=== PATIENT | male | born 1975 ===

== ENCOUNTER 2017-01-18 13:41 | Inpatient (IN) | payer MEDICAID, OTHER ==
[2017-01-18] MEDS ORDERED: Aluminum Hydroxide/Magnesium Hydroxide Susp (30 mL) PO STA (14:49)
[2017-01-18] MEDS ORDERED: Lidocaine 2% Viscous 100 ml PO STA (14:49)
[2017-01-18] MEDS ORDERED: Sodium Chloride 0.9% 1,000 ML IV ONE (14:49)
--- NOTE | 2017-01-18 14:54 | C.PDOC ---
History Of Present Illness 41 y/o male no pmhx presents to the ED with complains of abdominal pain, requesting alcohol detox. Pt states he was sober for 10 years but has been a binge the last 8 days. Pt now has epigastric pain, bloating and nausea. Pt was treated at [place], with labs performed, prescribed pain medication; referred pt to [facility] for detox services. Pt denies headache, vomiting, chest pain or any other complaints. Time Seen by Provider: 01/18/17 14:25 Chief Complaint (Nursing): Substance Abuse History Per: Patient History/Exam Limitations: no limitations Onset/Duration Of Symptoms: Days Current Symptoms Are (Timing): Still Present Modifying Factor(s): Alcohol Severity: Mild Involuntary Hold By: None Recent travel outside of the [place]: No Past Medical History Reviewed: Historical Data, Nursing Documentation, Vital Signs Vital Signs: Last Vital Signs Temp 98 F 01/18/17 13:52 Pulse 66 01/18/17 13:52 Resp 20 01/18/17 13:52 BP 94/61 L 01/18/17 13:52 Pulse Ox 100 01/18/17 15:27 Surgical History: Appendectomy Family History: States: Unknown Family Hx - Social History Hx Alcohol Use: Yes (chronic at times.) Hx Substance Use: No - Immunization History Hx Tetanus Toxoid Vaccination: No Hx Influenza Vaccination: No Hx Pneumococcal Vaccination: No Review Of Systems Except As Marked, All Systems Reviewed And Found Negative. Constitutional: Negative for: Fever Cardiovascular: Negative for: Chest Pain Gastrointestinal: Positive for: Nausea, Abdominal Pain. Negative for: Vomiting , Diarrhea Neurological: Negative for: Headache Physical Exam - Physical Exam Appears: Non-toxic, No Acute Distress, Other (frail, thin) Skin: Warm, Dry Head: Atraumatic, Normacephalic Neck: Normal ROM, Supple Chest: Symmetrical Cardiovascular: Rhythm Regular, No Murmur Respiratory: Normal Breath Sounds, No Rales, No Rhonchi, No Wheezing Gastrointestinal/Abdominal: Soft, Tenderness (diffuse), No Guarding, No Rebound Extremity: Normal ROM Extremity: Bilateral: Atraumatic Neurological/Psych: Oriented x3, Other (tremulous) ED Course And Treatment - Laboratory Results Result Diagrams: 01/18/17 17:13 01/18/17 17:06 O2 Sat by Pulse Oximetry: 100 (on room air) Pulse Ox Interpretation: Normal Progress Note: Plan: labs, maalox, pepcid, UA, IV fluids Disposition Discussed With Dr.: Buzz Lane Doctor Will See Patient In The: Hospital Counseled Patient/Family Regarding: Studies Performed - Disposition Disposition: HOME/ ROUTINE Disposition Time: 18:20 Condition: GUARDED - Clinical Impression Clinical Impression: Alcohol withdrawal, Wasting syndrome - Scribe Statement The provider has reviewed the documentation as recorded by the Sparkle Aguiar Provider Attestation: All medical record entries made by the Sparkle were at my direction and personally dictated by me. I have reviewed the chart and agree that the record accurately reflects my personal performance of the history, physical exam, medical decision making, and the department course for this patient. I have also personally directed, reviewed, and agree with the discharge instructions and disposition. Decision To Admit - Pt Status Changed To: Hospital Disposition Of: Inpatient - Admit Certification Admit to Inpatient:: After my assessment, the patient will require hospitalization for at least two midnights. This is because of the severity of symptoms shown, intensity of services needed, and/or the medical risk in this patient being treated as an outpatient. - InPatient: Physician Admission Certification: I certify that this patient requires 2 or more midnights of care for the following reason:: wasting syndrom, weight loss, withdrawl - . Bed Request Type: Regular Patient Diagnosis: Alcohol withdrawal, Wasting syndrome
[2017-01-18] MEDS ORDERED: Sodium Chloride 0.9% 1,000 ML ONE (15:09)
[2017-01-18] MEDS ORDERED: Aluminum Hydroxide/Magnesium Hydroxide Susp (30 mL) ONE (15:27)
[2017-01-18 15:31] LABS: RBC URINE < 1 /hpf (0-3); URINE BILIRUBIN NEGATIVE (NEGATIVE); URINE BLOOD NEGATIVE (NEGATIVE); URINE COLOR Yellow (YELLOW); URINE GLUCOSE (UA) NORMAL (Normal); URINE KETONE TRACE mg/dL (NEGATIVE); URINE LEUKOCYTE ESTERASE NEG Leu/uL (Negative); URINE PROTEIN NEGATIVE (NEGATIVE); URINE UROBILINOGEN NORMAL mg/dL (0.2-1.0); WBC URINE < 1 /hpf (0-5)
[2017-01-18 17:19] LABS: CHLORIDE 96 mmol/L (98-107); POTASSIUM 5.7 mmol/L (3.6-5.2); SODIUM 132 mmol/L (132-148)
[2017-01-18 17:21] LABS: BILIRUBIN,TOTAL 2.6 mg/dL (0.2-1.3); CARBON DIOXIDE 22 mmol/L (22-30); GFR AFRICAN-AMERICAN > 60
[2017-01-18 17:21] LABS: BASO % 0.8 % (0.0-2.0); EOS % 0.8 % (0.0-4.0); HEMATOCRIT 41.1 % (35.0-51.0); LYMPH # 1.7 K/uL (1.0-4.3); LYMPH % 33.5 % (20.0-40.0); MEAN CELL VOLUME 93.2 fL (80.0-94.0); MEAN CORPUSCULAR HEMOGLOBIN 31.8 pg (27.0-31.0); MEAN CORPUSCULAR HGB CONC 34.1 g/dL (33.0-37.0); MEAN PLATELET VOLUME 9.5 fL (7.2-11.7); MONO # 0.5 K/uL (0.0-0.8); MONO % 10.6 % (0.0-10.0); NRBC % 0.1 % (0.0-2.0); RED CELL DISTRIBUTION WIDTH 13.7 % (11.5-14.5); WHITE BLOOD COUNT 4.9 K/uL (4.8-10.8)
[2017-01-18 17:22] LABS: ALB/GLOB RATIO 1.5 (1.0-2.1); ALKALINE PHOSPHATASE 58 U/L (38-126); ALT/SGPT 16 U/L (21-72); AST/SGOT 70 U/L (17-59); BLOOD UREA NITROGEN 5 mg/dL (9-20); CALCIUM 8.4 mg/dl (8.6-10.4); GLUCOSE,RANDOM 90 mg/dL (75-110); TOTAL PROTEIN 7.3 g/dL (6.3-8.3)
[2017-01-18 17:23] LABS: ALCOHOL SERUM < 10 mg/dl (0-10)
[2017-01-18] MEDS ORDERED: Folic Acid 1 MG, Thiamine 100 MG, Multivitamin (MVI) 10 ML in Dextrose 5% In Water 1,00... IV SCH (18:30)
--- NOTE | 2017-01-18 19:06 | CP.PCM.HP ---
<Rogelio Thomas - Last Filed: 01/18/17 19:09> History of Present Illness - History of Present Illness History of Present Illness: This is a 41 yo with PMH significant for Etoh abuse presented to the ED with chief complaint of abdominal pain and desire for detox from Etoh. Pt states that he used to abuse Etoh but stopped around 10 years ago. However, he states that starting about 1 month ago, he began to drink again. He says that he was drinking around 10 large beers per day. He states that this went on for at least 2 weeks at which time he was not consuming food as well. He reports significant weight loss, around 20-30 pounds. According to the pt, he stopped drinking agin about 1 week ago and that is when he started having abdominal pain. The pain is worse with eating and he feels like he is bloated and there is burning as well. He has not been vomiting and denies any diarrhea as well. Denies fevers, chills, chest pain, sob or nausea. He admits to shaking, and diaphoresis. He states that he will soke his sheets at night. PMD: none PMH: Etoh abuse PSH: denies Home medications: none Allergies: NKA FH: denies SH: as above Present on Admission - Present on Admission Any Indicators Present on Admission: No Review of Systems - Constitutional Constitutional: absent: Chills, Fever - EENT Eyes: absent: Blurred Vision, Pain - Cardiovascular Cardiovascular: absent: Chest Pain, Palpitations - Respiratory Respiratory: absent: Cough, Dyspnea - Gastrointestinal Gastrointestinal: Abdominal Pain, Bloating. absent: Diarrhea, Nausea, Vomiting - Musculoskeletal Musculoskeletal: absent: Muscle Weakness, Stiffness - Integumentary Integumentary: absent: Rash, Skin Pain - Neurological Neurological: absent: Numbness, Tingling Past Patient History - Infectious Disease Hx of Infectious Diseases: None - Past Social History Smoking Status: Never Smoked - PSYCHIATRIC Hx Substance Use: No - SURGICAL HISTORY Hx Appendectomy: Yes - ANESTHESIA Hx Anesthesia: Yes Hx Anesthesia Reactions: No Hx Malignant Hyperthermia: No Meds Allergies/Adverse Reactions: Allergies Allergy/AdvReac Type Severity Reaction Status Date / Time No Known Allergies Allergy Verified 01/18/17 14:30 Physical Exam - Constitutional Appears: Well, Non-toxic, No Acute Distress, Cachectic (mild) - Head Exam Head Exam: ATRAUMATIC, NORMOCEPHALIC - Eye Exam Eye Exam: Normal appearance. absent: Scleral icterus Pupil Exam: absent: PERRL - ENT Exam ENT Exam: Mucous Membranes Moist - Respiratory Exam Respiratory Exam: Clear to Auscultation Bilateral, NORMAL BREATHING PATTERN - Cardiovascular Exam Cardiovascular Exam: +S1, +S2 - GI/Abdominal Exam GI & Abdominal Exam: Normal Bowel Sounds, Soft, Tenderness (epigastric) - Extremities Exam Extremities exam: Positive for: normal capillary refill, normal inspection - Back Exam Back exam: NORMAL INSPECTION - Neurological Exam Neurological exam: Alert, Oriented x3 Additional comments: Mild tremors - Skin Skin Exam: Dry, Warm Results - Vital Signs Recent Vital Signs: Last Vital Signs Temp 98 F 01/18/17 13:52 Pulse 66 01/18/17 13:52 Resp 20 01/18/17 13:52 BP 94/61 L 01/18/17 13:52 Pulse Ox 100 01/18/17 18:21 - Labs Result Diagrams: 01/18/17 17:13 01/18/17 17:06 Labs: Laboratory Results - last 24 hr 01/18/17 01/18/17 01/18/17 15:26 17:06 17:13 WBC 4.9 RBC 4.41 Hgb 14.0 Hct 41.1 MCV 93.2 MCH 31.8 H MCHC 34.1 RDW 13.7 Plt Count 205 MPV 9.5 Neut % (Auto) 54.3 Lymph % (Auto) 33.5 Gar[place] % (Auto) 10.6 H Eos % (Auto) 0.8 Baso % (Auto) 0.8 Neut # 2.7 Lymph # 1.7 Garza # 0.5 Eos # 0.0 Baso # 0.0 Sodium 132 Potassium 5.7 H Chloride 96 L Carbon Dioxide 22 Anion Gap 20 BUN 5 L Creatinine 0.6 L Est GFR ( Amer) > 60 Est GFR (Non-Af Amer) > 60 Random Glucose 90 Calcium 8.4 L Total Bilirubin 2.6 H AST 70 H ALT 16 L Alkaline Phosphatase 58 Ammonia < 9 L Total Protein 7.3 Albumin 4.4 Globulin 2.9 Albumin/Globulin Ratio 1.5 Lipase 97 Urine Color Yellow Urine Clarity Clear Urine pH 6.0 Ur Specific [place] 1.011 Urine Protein Negative Urine Glucose (UA) Normal Urine Ketones Trace Urine Blood Negative Urine Nitrate Negative Urine Bilirubin Negative Urine Urobilinogen Normal Ur Leukocyte Esterase Neg Urine WBC (Auto) < 1 Urine RBC (Auto) < 1 Urine Opiates Screen Urine Methadone Screen Ur Barbiturates Screen Ur Phencyclidine Scrn Ur Amphetamines Screen U Benzodiazepines Scrn U Oth Cocaine Metabols U Cannabinoids Screen Alcohol, Quantitative < 10 01/18/17 17:27 WBC RBC Hgb Hct MCV MCH MCHC RDW Plt Count MPV Neut % (Auto) Lymph % (Auto) Garza % (Auto) Eos % (Auto) Baso % (Auto) Neut # Lymph # Garza # Eos # Baso # Sodium Potassium Chloride Carbon Dioxide Anion Gap BUN Creatinine Est GFR ( Amer) Est GFR (Non-Af Amer) Random Glucose Calcium Total Bilirubin AST ALT Alkaline Phosphatase Ammonia Total Protein Albumin Globulin Albumin/Globulin Ratio Lipase Urine Color Urine Clarity Urine pH Ur Specific [place] Urine Protein Urine Glucose (UA) Urine Ketones Urine Blood Urine Nitrate Urine Bilirubin Urine Urobilinogen Ur Leukocyte Esterase Urine WBC (Auto) Urine RBC (Auto) Urine Opiates Screen Negative Urine Methadone Screen Negative Ur Barbiturates Screen Negative Ur Phencyclidine Scrn Negative Ur Amphetamines Screen Negative U Benzodiazepines Scrn Negative U Oth Cocaine Metabols Negative U Cannabinoids Screen Negative Alcohol, Quantitative Assessment & Plan - Assessment and Plan (Free Text) Assessment: Alcohol withdrawal - Mild tremors - States last drink was 1 week ago - [facility] protocol - Ativan taper - Ativan PRN - D5 with thiamine and folic acid - Liquid diet Abdominal pain - Likely due to Etoh withdrawal - CT abdomen and pelvis - Zofran PRN - Lipase WNL 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 - Likely due to Etoh abuse - Liquid diet for now and IVF hydration - Labs AM PPX - Lovenox - Pepcid <Buzz Lane H - Last Filed: 01/18/17 19:31> Results - Vital Signs Recent Vital Signs: Last Vital Signs Temp 98 F 01/18/17 13:52 Pulse 66 01/18/17 13:52 Resp 20 01/18/17 13:52 BP 94/61 L 01/18/17 13:52 Pulse Ox 100 01/18/17 18:21 - Labs Result Diagrams: 01/18/17 17:13 01/18/17 17:06 Attending/Attestation - Attestation I have personally seen and examined this patient.: Yes I have fully participated in the care of the patient.: Yes I have reviewed all pertinent clinical information: Yes Notes (Text): 01/18/17 19:28 MEdical Attending: Patient was seen and examined by me in hallway 7. He reported a lot of sweating, tremors, as well as abdominal cramps. He does have a history of extensive ETOH use. He states that he has been drinking a lot - and has neglected to eat food due to his drinking. We explained to him that the excessive alcohol use is causing him to starve himself slowly. Nevertheless will check CT of the abd and pelvis tor rule out other potential causes of the extensive weightloss he is having In the mean time will need IVF, thiame, folic acid, MVI as well as CIWA protocol with ativan as well as ativan IV for break through. thank you Buzz Lane
[2017-01-18] MEDS ORDERED: Folic Acid 1 MG, Thiamine 100 MG, Multivitamin (MVI) 10 ML in Dextrose 5% In Water 1,00... IV ONE (20:30)
[2017-01-18] MEDS ORDERED: Sod Polystyrene Sulf 15 gm/60 ml Oral Susp PO ONE (22:59)
[2017-01-18] MEDS: Sodium Chloride 0.9% 1,000 ML IV SCH (23:18)
[2017-01-19 07:50] LABS: BASO # 0.1 K/uL (0.0-0.2); BASO % 2.1 % (0.0-2.0); EOS # 0.1 K/uL (0.0-0.7); EOS % 1.3 % (0.0-4.0); HEMATOCRIT 34.8 % (35.0-51.0); LYMPH # 1.4 K/uL (1.0-4.3); LYMPH % 34.9 % (20.0-40.0); MEAN CELL VOLUME 93.2 fL (80.0-94.0); MEAN CORPUSCULAR HEMOGLOBIN 30.9 pg (27.0-31.0); MEAN CORPUSCULAR HGB CONC 33.2 g/dL (33.0-37.0); MONO # 0.5 K/uL (0.0-0.8); MONO % 12.5 % (0.0-10.0); NRBC % 0.1 % (0.0-2.0); RED CELL DISTRIBUTION WIDTH 13.4 % (11.5-14.5)
[2017-01-19 07:51] LABS: CHLORIDE 100 mmol/L (98-107); POTASSIUM 3.6 mmol/L (3.6-5.2); SODIUM 136 mmol/L (132-148)
[2017-01-19 07:53] LABS: GFR AFRICAN-AMERICAN > 60
[2017-01-19 07:54] LABS: ALB/GLOB RATIO 1.3 (1.0-2.1); ALKALINE PHOSPHATASE 44 U/L (38-126); ALT/SGPT 36 U/L (21-72); AST/SGOT 37 U/L (17-59); BILIRUBIN,TOTAL 0.6 mg/dL (0.2-1.3); BLOOD UREA NITROGEN 5 mg/dL (9-20); CALCIUM 7.8 mg/dl (8.6-10.4); CARBON DIOXIDE 24 mmol/L (22-30); GLUCOSE,RANDOM 75 mg/dL (75-110); TOTAL PROTEIN 5.6 g/dL (6.3-8.3)
--- NOTE | 2017-01-19 09:15 | CT ---
PROCEDURE: CT Abdomen and Pelvis without intravenous contrast HISTORY: abdominal pain COMPARISON: None. TECHNIQUE: Multiple contiguous axial images were performed through the abdomen and pelvis without the use of intravenous contrast. Subsequently, sagittal and coronal reformatted images were obtained.. Radiation dose: Total exam DLP = 196 mGy-cm. This CT exam was performed using one or more of the following dose reduction techniques: Automated exposure control, adjustment of the mA and/or kV according to patient size, and/or use of iterative reconstruction technique. FINDINGS: LOWER THORAX: Unremarkable. LIVER: Unremarkable. No gross lesion or ductal dilatation. GALLBLADDER AND BILE DUCTS: Unremarkable. PANCREAS: Unremarkable. No gross lesion or ductal dilatation. SPLEEN: Unremarkable. ADRENALS: Unremarkable. No mass. KIDNEYS AND URETERS: Unremarkable. No hydronephrosis. No solid mass. VASCULATURE: Unremarkable. No aortic aneurysm. BOWEL: Mild thickening versus underdistention of the left hemicolon. APPENDIX: Prior appendectomy. PERITONEUM: Unremarkable. No free fluid. No free air. LYMPH NODES: Unremarkable. No enlarged lymph nodes. BLADDER: Moderately distended urinary bladder. REPRODUCTIVE: Unremarkable. BONES: Small sclerotic focus with benign features the left ilium, nonspecific, possibly a benign bony lesion, such as an enchondroma. OTHER FINDINGS: Motion artifact somewhat limits evaluation. IMPRESSION: Mild thickening versus underdistention of the left hemicolon. Clinical correlation. Correlation with contrast-enhanced CT may be helpful if clinically indicated. Prior appendectomy. Additional findings as above. These findings were preliminarily reported at 8:25 p.m. on 01/18/[address] Perry Aleman from [facility].
[2017-01-19] MEDS: Sodium Chloride 0.9% 1,000 ML IV SCH ×2 (09:56→20:00)
[2017-01-19] MEDS ORDERED: Enoxaparin 40 mg Syringe SC SCH (10:00)
[2017-01-19] MEDS ORDERED: Thiamine 100 mg/ml Inj IV SCH (10:00)
--- NOTE | 2017-01-19 12:21 | CP.PCM.CON ---
History of Present Illness - History of Present Illness History of Present Illness: GI Service consult for abdominal pain 41 year old man admitted with epigastric pain, and requests alcohol detox. He las drank alcohol 10 days ago. Patient lost nearly 50 lbs over past 3 weeks, sometimes sees black colored stools, has sharp burning wpigastric pains and lower abdominal pains, bloating after meals, and has to have BM quickly after eating. His hgb dropped since admission but no reported overt bleeding. He was started on protonix and Lovenox, and Ativan for alcohol withdrawal. Patient underwent CT to evaluate the abdominal pain and CT reports mild thickening or underdistension. Past Patient History - Infectious Disease Hx of Infectious Diseases: None - Past Medical History & Family History Past Medical History?: Yes - Past Social History Smoking Status: Never Smoked - MUSCULOSKELETAL/RHEUMATOLOGICAL Hx Falls: No - PSYCHIATRIC Hx Substance Use: No - SURGICAL HISTORY Hx Appendectomy: Yes - ANESTHESIA Hx Anesthesia: Yes Hx Anesthesia Reactions: No Hx Malignant Hyperthermia: No Meds Allergies/Adverse Reactions: Allergies Allergy/AdvReac Type Severity Reaction Status Date / Time No Known Allergies Allergy Verified 01/18/17 14:30 - Medications Medications: Current Medications Enoxaparin Sodium (Lovenox) 40 mg SC DAILY [facility] Last Admin: 01/19/17 10:21 Dose: 40 mg Sodium Chloride (Sodium Chloride 0.9%) 1,000 mls @ 100 mls/hr IV .Q10H [facility] Last Admin: 01/19/17 09:56 Dose: 100 mls/hr Lorazepam (Ativan) 2 mg IVP Q8H [facility] PRN Reason: Taper Stop: 01/24/17 09:16 Last Admin: 01/19/17 10:21 Dose: 2 mg Lorazepam (Ativan) 1 mg IVP Q2H PRN PRN Reason: Seizure activity Ondansetron HCl (Zofran Inj) 4 mg IVP Q4H PRN PRN Reason: Nausea/Vomiting Pantoprazole Sodium (Protonix Inj) 40 mg IVP DAILY [facility] Last Admin: 01/19/17 10:21 Dose: 40 mg Physical Exam - Constitutional Appears: No Acute Distress, Other (Thin) - Head Exam Head Exam: NORMOCEPHALIC - Eye Exam Eye Exam: absent: Scleral icterus - Neck Exam Neck exam: Positive for: Normal Inspection - Respiratory Exam Respiratory Exam: Clear to Auscultation Bilateral - Cardiovascular Exam Cardiovascular Exam: REGULAR RHYTHM - GI/Abdominal Exam GI & Abdominal Exam: Soft, Tenderness. absent: Distended, Guarding, Mass, Organomegaly, Rebound Results - Vital Signs Recent Vital Signs: Last Vital Signs Temp 99.0 F 01/19/17 10:22 Pulse 79 01/19/17 10:22 Resp 18 01/19/17 10:22 BP 102/63 01/19/17 10:22 Pulse Ox 94 L 01/19/17 10:22 - Labs Result Diagrams: 01/19/17 07:26 01/19/17 07:26 Labs: Laboratory Results - last 24 hr 01/19/17 01/19/17 07:26 08:12 WBC 4.0 L RBC 3.74 L Hgb 11.6 L D Hct 34.8 L MCV 93.2 MCH 30.9 MCHC 33.2 RDW 13.4 Plt Count 174 MPV 9.0 Neut % (Auto) 49.2 L Lymph % (Auto) 34.9 [place] % (Auto) 12.5 H Eos % (Auto) 1.3 Baso % (Auto) 2.1 H Neut # 2.0 Lymph # 1.4 [place] # 0.5 Eos # 0.1 Baso # 0.1 Sodium 136 Potassium 3.6 Chloride 100 Carbon Dioxide 24 Anion Gap 15 BUN 5 L Creatinine 0.6 L Est GFR ( Amer) > 60 Est GFR (Non-Af Amer) > 60 Random Glucose 75 Calcium 7.8 L Magnesium 2.1 Total Bilirubin 0.6 AST 37 ALT 36 Alkaline Phosphatase 44 Total Protein 5.6 L Albumin 3.2 L D Globulin 2.4 Albumin/Globulin Ratio 1.3 Assessment & Plan (1) Abdominal pain Assessment and Plan: Epigastric pain, bloating, weight loss. R/O alcoholic gastritis vs. functional pain Rec: EGD. Would hold off Lovenox until EGD can confirm there is no bleeding. Check stool OB Status: Acute (2) Abnormal abdominal CT scan Assessment and Plan: reported thickening or underdistension of Colon. I do not clinically suspect colonic problem. Will monitor for now. Status: Acute - Date & Time Date: 01/19/17 Time: 12:28
--- NOTE | 2017-01-19 13:36 | PCM.PSYCH ---
Initial Psychiatric Evaluation - Initial Psychiatric Evaluation Type of Admission: Voluntary Legal Status: Capacity Chief Complaint (in patient's own words): "Pain" History of Present Illness and Precipitating Events: The patient is seen, chart reviewed and case discussed. Consultation is requested for his alcohol use. This is a 41-year-old male, , 2 children 10 and 22 years old, lives with his 22-year-old son, unemployed. The patient claims he relapsed 15 days ago and he was using up to 5 of the 24 ounce beers. Denies liquor use. Had some withdrawal symptoms but currently stable with detox. Denies any psych symptoms or drug use. Past psych history: Denies Family psych history: Brothers and father used alcohol Medical history: Liver and pancreas problems and gastritis Current Medications: Active Medications Generic Name Dose Route Start Last Admin Trade Name Freq PRN Reason Stop Dose Admin Enoxaparin Sodium 40 mg 01/19/17 10:00 01/19/17 10:21 Lovenox SC 40 mg DAILY [facility] Administration Sodium Chloride 1,000 mls @ 100 mls/hr 01/18/17 23:00 01/19/17 09:56 Sodium Chloride 0.9% IV 100 mls/hr .Q10H [facility] Administration Lorazepam 2 mg 01/19/17 09:17 01/19/17 10:21 Ativan IVP 01/24/17 09:16 2 mg Q8H [facility] Administration Taper Lorazepam 1 mg 01/19/17 10:37 Ativan IVP Q2H PRN Seizure activity Ondansetron HCl 4 mg 01/18/17 18:53 Zofran Inj IVP Q4H PRN Nausea/Vomiting Pantoprazole Sodium 40 mg 01/19/17 10:00 01/19/17 10:21 Protonix Inj IVP 40 mg DAILY [facility] Administration Past Psychiatric History - Past Psychiatric History Previous Treatment History: None Pertinent Medical Hx (Current Medical&Sleep Prob, Allergies): Allergies Allergy/AdvReac Type Severity Reaction Status Date / Time No Known Allergies Allergy Verified 01/18/17 14:30 No Known Home Med 01/18/17 Review of Systems - Neurological Neurological: UNREMARKABLE - Psychiatric Psychiatric: Abnormal Sleep Pattern, Anxiety, Difficulty Concentrating. absent : Depression, Homicidal Ideation, Paranoia, Suicidal Ideation Mental Status Examination - Personal Presentation Personal Presentation: Looks stated age - Affect Affect: Broad - Motor Activity Motor Activity: Calm - Reliability in Providing Information Reliability in Providing Information: Good - Speech Speech: Organized - Mood Mood: Anxious (at times), Neutral - Formal Thought Process Formal Thought Process: No Impairment - Cognitive Functions Orientation: Person, Place, Situation, Time Sensorium: Alert Attention/Concentration: Attentive Estimate of Intelligence: Average Judgement: Intact, as evidence by: Insight regarding need for hospitalization Memory: Recent intact, as evidence by: Ability to recall events of the day, Remote intact, as evidenced by: Abilit to recall sig. life events - Risk Risk: Withdrawal, Diminished functioning - Strength & Assets Inventory Strength & Assets Inventory: Cooperative - Limitations Limitations: Other DSM 5 DX - DSM 5 DSM 5 Diagnosis: Alcohol withdrawal Alcohol use d/o - severe - Recommended/Plan of Treatment Treatment Recommendations and Plan of Treatment: Continue lorazepam detoxes As needed medications Gabapentin Periactin for insomnia and poor appetite Support and psychoeducation [place] Refer to IOP at [facility] Psych will sign off, please contact as needed
--- NOTE | 2017-01-19 14:56 | CP.PCM.PN ---
<Rogelio Thomas - Last Filed: 01/19/17 14:53> Subjective - Date & Time of Evaluation Date of Evaluation: 01/19/17 Time of Evaluation: 14:53 - Subjective Subjective: PGY-1 note for medicine service Pt seen and examined at bedside. No overnight events. Pt denies any symptoms of withdrawal overnight. Per nursing, no PRN ativan was given. Denies fevers, chills, chest pain, sob, nausea, vomiting or diaphoresis. Admits to abdominal pain but it is improved today. Objective - Vital Signs/Intake and Output Vital Signs (last 24 hours): Temp Pulse Resp BP Pulse Ox 99.0 F 79 18 102/63 94 L 01/19/17 10:22 01/19/17 10:22 01/19/17 10:22 01/19/17 10:22 01/19/17 10:22 Intake and Output: 01/19/17 01/19/17 06:59 18:59 Intake Total 800 100 Output Total 900 Balance -100 100 - Medications Medications: Current Medications Enoxaparin Sodium (Lovenox) 40 mg SC DAILY [facility] Last Admin: 01/19/17 10:21 Dose: 40 mg Sodium Chloride (Sodium Chloride 0.9%) 1,000 mls @ 100 mls/hr IV .Q10H [facility] Last Admin: 01/19/17 09:56 Dose: 100 mls/hr Lorazepam (Ativan) 2 mg IVP Q8H [facility] PRN Reason: Taper Stop: 01/24/17 09:16 Last Admin: 01/19/17 10:21 Dose: 2 mg Lorazepam (Ativan) 1 mg IVP Q2H PRN PRN Reason: Seizure activity Ondansetron HCl (Zofran Inj) 4 mg IVP Q4H PRN PRN Reason: Nausea/Vomiting Pantoprazole Sodium (Protonix Inj) 40 mg IVP DAILY [facility] Last Admin: 01/19/17 10:21 Dose: 40 mg - Labs Labs: 01/19/17 07:26 01/19/17 07:26 - Constitutional Appears: Non-toxic, No Acute Distress - Head Exam Head Exam: ATRAUMATIC, NORMOCEPHALIC - Eye Exam Eye Exam: Normal appearance Pupil Exam: PERRL - ENT Exam ENT Exam: Mucous Membranes Moist - Respiratory Exam Respiratory Exam: Clear to Ausculation Bilateral, NORMAL BREATHING PATTERN - Cardiovascular Exam Cardiovascular Exam: +S1, +S2 - GI/Abdominal Exam GI & Abdominal Exam: Soft, Tenderness (diffuse), Normal Bowel Sounds - Neurological Exam Neurological Exam: Alert, Awake, CN II-XII Intact Additional comments: Mildly tremulous with straight arm raise - Skin Skin Exam: Dry, Warm Assessment and Plan - Assessment and Plan (Free Text) Assessment: Alcohol withdrawal - Mild tremors - CIWA protocol - Ativan taper - Ativan PRN - no doses given last night - IVF changed to NS at 100 cc/Hr - Thiamine and folic acid daily - Psych (Edinden) consulted - help appreciated - f/u recs Abdominal pain - Likely due to Etoh withdrawal - CT abdomen and pelvis 01/18 - Mild thickening versus underdistention of the left hemicolon. Clinical correlation. Correlation with contrast-enhanced CT may be helpful if clinically indicated. Prior appendectomy. 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 - Likely due to Etoh abuse - Monitor PPX - Lovenox - Pepcid <Ruth Muhammad V - Last Filed: 01/19/17 16:00> Objective - Vital Signs/Intake and Output Vital Signs (last 24 hours): Temp Pulse Resp BP Pulse Ox 99.0 F 79 18 102/63 94 L 01/19/17 10:22 01/19/17 10:22 01/19/17 10:22 01/19/17 10:22 01/19/17 10:22 Intake and Output: 01/19/17 01/19/17 06:59 18:59 Intake Total 800 100 Output Total 900 Balance -100 100 - Medications Medications: Current Medications Folic Acid (Folic Acid) 1 mg PO DAILY [facility] Sodium Chloride (Sodium Chloride 0.9%) 1,000 mls @ 100 mls/hr IV .Q10H [facility] Last Admin: 01/19/17 09:56 Dose: 100 mls/hr Lorazepam (Ativan) 2 mg IVP Q8H [facility] PRN Reason: Taper Stop: 01/24/17 09:16 Last Admin: 01/19/17 10:21 Dose: 2 mg Lorazepam (Ativan) 1 mg IVP Q2H PRN PRN Reason: Seizure activity Ondansetron HCl (Zofran Inj) 4 mg IVP Q4H PRN PRN Reason: Nausea/Vomiting Pantoprazole Sodium (Protonix Inj) 40 mg IVP DAILY [facility] Last Admin: 01/19/17 10:21 Dose: 40 mg Thiamine HCl (Vitamin B1 Tab) 100 mg PO DAILY [facility] - Labs Labs: 01/19/17 07:26 01/19/17 07:26 Attending/Attestation - Attestation I have personally seen and examined this patient.: Yes I have fully participated in the care of the patient.: Yes I have reviewed all pertinent clinical information, including history, physical exam and plan: Yes Notes (Text): Patient seen, examined and case discussed with day-time resident. Patient seen at bedside. Patient is thin fellow; has been binge drinking alcohol on and off for over two weeks. Patient reports epigastric, burning gnawing pain, and reports gerd-type symptoms. Patient has mild involuntary guarding upon distraction. Reviewed CT scan (without PO/IV contrast); thickening vs underdistension GI consult (Dr. Robertson)-->help appreciated; EGD tomorrow, NPO after midnight Psych consult (Dr. Saenz)-->patient is requesting detox Continue Ativan taper Assessment/Plan 1) Alcohol withdrawal * Ativan taper (day 1) * Ativan 1 mg IVP Q 2hours PRN seizure activity * Patient has mild tremors upon exam * Thiamine 100mg PO daily * Folic acid 1mg PO daily * MVI 1 tab PO daily * monitor on telemetry * Psych (Dr. Saenz)--reason: alcohol abuse; patient requesting detox 2) Abdominal Pain * Patient appears to be tolerating clears * Lipase normal on admission * CT abdomen/pelvis w/o PO/OV contrast: mild thickening versus underdistetion of the left hemicolon. * GI (Dr. Robertson) consult--Help appreciated; patient to be NPO after midnight and go for EGD in the AM 3) Anemia * Change btw 14-->11.6 * possible dilutional; patient is on IV fluids * iron studies, reticulocyte count, stool occult blood ordered 4) Malnutrition * Possibly secondary to alcohol abuse * monitor albumin: 3.2 * Dietary referral ordered for malnutrition * reportedly lost 20-30lbs over the past month; possible tea and toast diet 5) Hyperkalemia * on admission: 5.7 * Normalized 6) Prophylactic measure * held lovenox for anticipated EGD tomorrow * Protonix 40mg IV q daily * NPO after midnight * Home Planning Consultant Salesperson referral
[2017-01-19] MEDS: Multiple Vitamins Tab PO SCH (16:16)
[2017-01-19 16:46] LABS: INR 1.2
--- NOTE | 2017-01-19 16:51 | CARD ---
APPROVED REPORT EKG Measurement Heart [id number] <Conclusion> Sinus bradycardia with sinus arrhythmia Otherwise normal ECG
[2017-01-19 20:00] LABS: IRON 39 ug/dL (49-181)
[2017-01-19 21:16] LABS: FOLATE > 20.0 ng/mL
[2017-01-20] MEDS: Sodium Chloride 0.9% 1,000 ML IV SCH ×2 (04:00→21:48)
[2017-01-20 07:35] LABS: INR 1.2
[2017-01-20 07:42] LABS: BASO # 0.1 K/uL (0.0-0.2); BASO % 1.7 % (0.0-2.0); EOS # 0.1 K/uL (0.0-0.7); EOS % 1.9 % (0.0-4.0); HEMATOCRIT 35.3 % (35.0-51.0); LYMPH # 1.5 K/uL (1.0-4.3); LYMPH % 36.2 % (20.0-40.0); MEAN CELL VOLUME 93.5 fL (80.0-94.0); MEAN CORPUSCULAR HEMOGLOBIN 30.8 pg (27.0-31.0); MEAN CORPUSCULAR HGB CONC 32.9 g/dL (33.0-37.0); MEAN PLATELET VOLUME 8.8 fL (7.2-11.7); MONO # 0.5 K/uL (0.0-0.8); MONO % 12.5 % (0.0-10.0); NRBC % 0.1 % (0.0-2.0); RED CELL DISTRIBUTION WIDTH 13.8 % (11.5-14.5); WHITE BLOOD COUNT 4.1 K/uL (4.8-10.8)
[2017-01-20 07:53] LABS: CHLORIDE 102 mmol/L (98-107); POTASSIUM 3.8 mmol/L (3.6-5.2); SODIUM 134 mmol/L (132-148)
[2017-01-20 07:55] LABS: ALB/GLOB RATIO 1.4 (1.0-2.1); AST/SGOT 24 U/L (17-59); CARBON DIOXIDE 23 mmol/L (22-30); GFR AFRICAN-AMERICAN > 60; TOTAL PROTEIN 6.1 g/dL (6.3-8.3)
[2017-01-20 07:56] LABS: ALKALINE PHOSPHATASE 46 U/L (38-126); ALT/SGPT 34 U/L (21-72); BLOOD UREA NITROGEN 3 mg/dL (9-20); CALCIUM 8.2 mg/dl (8.6-10.4); GLUCOSE,RANDOM 80 mg/dL (75-110)
[2017-01-20] MEDS ORDERED: Propofol 10 mg/ml Inj (20 ML) ONE ×2 (10:40→10:43)
--- NOTE | 2017-01-20 10:40 | CP.PCM.PN ---
<Rogelio Thomas - Last Filed: 01/20/17 13:38> Subjective - Date & Time of Evaluation Date of Evaluation: 01/20/17 Time of Evaluation: 10:38 - Subjective Subjective: PGY-1 note for medicine service Pt seen and examined at bedside. Pt states that he feels better today with less abdominal pain. Pt has been NPO since midnight for EGD today. Denies any night sweats, fevers, chills, chest pain, sob, nausea or vomiting. Objective - Vital Signs/Intake and Output Vital Signs (last 24 hours): Temp Pulse Resp BP Pulse Ox 98.2 F 71 20 96/58 L 98 01/20/17 08:25 01/20/17 08:25 01/20/17 08:25 01/20/17 08:25 01/20/17 08:25 Intake and Output: 01/20/17 01/20/17 06:59 18:59 Intake Total 1040 Balance 1040 - Medications Medications: Current Medications Cyproheptadine HCl (Periactin) 4 mg PO [facility] Folic Acid (Folic Acid) 1 mg PO DAILY [facility] Last Admin: 01/19/17 16:00 Dose: 1 mg Gabapentin (Neurontin) 300 mg PO BID [facility] Sodium Chloride (Sodium Chloride 0.9%) 1,000 mls @ 100 mls/hr IV .Q10H [facility] Last Admin: 01/20/17 04:00 Dose: Not Given Lorazepam (Ativan) 1 mg IVP Q6H [facility] PRN Reason: Taper Stop: 01/24/17 09:16 Last Admin: 01/20/17 09:33 Dose: Not Given Lorazepam (Ativan) 1 mg IVP Q2H PRN PRN Reason: Seizure activity Multivitamins (Hexavitamin) 1 tab PO DAILY [facility] Last Admin: 01/19/17 16:16 Dose: 1 tab Ondansetron HCl (Zofran Inj) 4 mg IVP Q4H PRN PRN Reason: Nausea/Vomiting Pantoprazole Sodium (Protonix Inj) 40 mg IVP DAILY [facility] Last Admin: 01/19/17 10:21 Dose: 40 mg Thiamine HCl (Vitamin B1 Tab) 100 mg PO DAILY [facility] Last Admin: 01/19/17 16:00 Dose: 100 mg - Labs Labs: 01/20/17 07:11 01/20/17 07:11 PT 13.7 SECONDS (9.7-12.2) H 01/20/17 07:11 INR 1.2 01/20/17 07:11 - Constitutional Appears: Non-toxic, No Acute Distress - Head Exam Head Exam: ATRAUMATIC, NORMOCEPHALIC - ENT Exam ENT Exam: Mucous Membranes Moist - Respiratory Exam Respiratory Exam: Clear to Ausculation Bilateral, NORMAL BREATHING PATTERN - Cardiovascular Exam Cardiovascular Exam: +S1, +S2 - GI/Abdominal Exam GI & Abdominal Exam: Soft, Tenderness, Normal Bowel Sounds - Neurological Exam Neurological Exam: Alert, Awake - Skin Skin Exam: Dry, Warm Assessment and Plan - Assessment and Plan (Free Text) Assessment: Alcohol withdrawal - Mild tremors - CIWA protocol - Ativan taper - Ativan PRN - no doses given last night - IVF changed to NS at 100 cc/Hr - Thiamine and folic acid daily - Psych (Letty) consulted - help appreciated - Continue lorazepam detoxes - As needed medications - Gabapentin - Periactin for insomnia and poor appetite - Support and psychoeducation - NH - Refer to IOP at [facility] Abdominal pain - Likely due to Etoh withdrawal - CT abdomen and pelvis 01/18 - Mild thickening versus underdistention of the left hemicolon. Clinical correlation. Correlation with contrast-enhanced CT may be helpful if clinically indicated. Prior appendectomy. - Zofran PRN - Lipase WNL - GI consult (Marcelo) - help appreciated - liquid diet - EGD - completed - f/u results - Stool occult blood test - negative 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 - Likely due to Etoh abuse - Monitor PPX - Lovenox - Pepcid <Buzz Lane H - Last Filed: 01/20/17 16:27> Objective - Vital Signs/Intake and Output Vital Signs (last 24 hours): Temp Pulse Resp BP Pulse Ox 98.2 F 61 21 104/62 100 01/20/17 11:35 01/20/17 11:35 01/20/17 11:35 01/20/17 11:35 01/20/17 11:35 Intake and Output: 01/20/17 01/20/17 06:59 18:59 Intake Total 1040 Balance 1040 - Medications Medications: Current Medications Cyproheptadine HCl (Periactin) 4 mg PO HS [facility] Folic Acid (Folic Acid) 1 mg PO DAILY [facility] Last Admin: 01/20/17 13:54 Dose: 1 mg Gabapentin (Neurontin) 300 mg PO BID [facility] Last Admin: 01/20/17 13:54 Dose: 300 mg Sodium Chloride (Sodium Chloride 0.9%) 1,000 mls @ 100 mls/hr IV .Q10H [facility] Last Admin: 01/20/17 04:00 Dose: Not Given Lorazepam (Ativan) 1 mg IVP Q6H [facility] PRN Reason: Taper Stop: 01/24/17 09:16 Last Admin: 01/20/17 15:30 Dose: Not Given Lorazepam (Ativan) 1 mg IVP Q2H PRN PRN Reason: Seizure activity Last Admin: 01/20/17 13:56 Dose: 1 mg Multivitamins (Hexavitamin) 1 tab PO DAILY [facility] Last Admin: 01/20/17 13:55 Dose: 1 tab Ondansetron HCl (Zofran Inj) 4 mg IVP Q4H PRN PRN Reason: Nausea/Vomiting Last Admin: 01/20/17 13:54 Dose: 4 mg Pantoprazole Sodium (Protonix Inj) 40 mg IVP DAILY [facility] Last Admin: 01/20/17 13:54 Dose: 40 mg Thiamine HCl (Vitamin B1 Tab) 100 mg PO DAILY [facility] Last Admin: 01/20/17 13:55 Dose: 100 mg - Labs Labs: 01/20/17 07:11 01/20/17 07:11 PT 13.7 SECONDS (9.7-12.2) H 01/20/17 07:11 INR 1.2 01/20/17 07:11 Attending/Attestation - Attestation I have personally seen and examined this patient.: Yes I have fully participated in the care of the patient.: Yes I have reviewed all pertinent clinical information, including history, physical exam and plan: Yes Notes (Text): Medical Attending: Patient was seen and examined by me. Agree with the above note by the resident - the patient went for endoscopy today. If the results are ok then probably will see if patient can go to alcohol detox floor. Continue with CIWA ativan taper, thiamine, folic acid, MVI [address]
[2017-01-20] MEDS ORDERED: Lactated Ringer's 500 ML IV ONE ×3 (10:50)
[2017-01-20] MEDS: Multiple Vitamins Tab PO SCH (13:55)
[2017-01-21] MEDS: Sodium Chloride 0.9% 1,000 ML IV SCH ×3 (01:00→11:06)
[2017-01-21 08:03] LABS: BASO # 0.1 K/uL (0.0-0.2); BASO % 1.5 % (0.0-2.0); EOS # 0.1 K/uL (0.0-0.7); HEMATOCRIT 37.7 % (35.0-51.0); LYMPH # 2.1 K/uL (1.0-4.3); LYMPH % 40.1 % (20.0-40.0); MEAN CELL VOLUME 93.6 fL (80.0-94.0); MEAN CORPUSCULAR HEMOGLOBIN 30.9 pg (27.0-31.0); MEAN CORPUSCULAR HGB CONC 33.1 g/dL (33.0-37.0); MEAN PLATELET VOLUME 9.1 fL (7.2-11.7); MONO # 0.7 K/uL (0.0-0.8); MONO % 13.6 % (0.0-10.0); NRBC % 0.1 % (0.0-2.0); RED CELL DISTRIBUTION WIDTH 13.8 % (11.5-14.5); WHITE BLOOD COUNT 5.3 K/uL (4.8-10.8)
[2017-01-21 08:28] LABS: CHLORIDE 98 mmol/L (98-107); POTASSIUM 4.1 mmol/L (3.6-5.2); SODIUM 135 mmol/L (132-148)
[2017-01-21 08:30] LABS: BILIRUBIN,TOTAL 0.7 mg/dL (0.2-1.3); CARBON DIOXIDE 24 mmol/L (22-30); GFR AFRICAN-AMERICAN > 60
[2017-01-21 08:31] LABS: ALB/GLOB RATIO 1.5 (1.0-2.1); ALKALINE PHOSPHATASE 43 U/L (38-126); ALT/SGPT 33 U/L (21-72); AST/SGOT 26 U/L (17-59); BLOOD UREA NITROGEN 3 mg/dL (9-20); CALCIUM 8.1 mg/dl (8.6-10.4); GLUCOSE,RANDOM 79 mg/dL (75-110); TOTAL PROTEIN 5.8 g/dL (6.3-8.3)
[2017-01-21] MEDS: Multiple Vitamins Tab PO SCH (09:48)
--- NOTE | 2017-01-21 10:54 | CP.PCM.PN ---
Subjective - Date & Time of Evaluation Date of Evaluation: 01/21/17 Time of Evaluation: 07:10 - Subjective Subjective: PGY-[address]: Patient seen and examined at bedside this morning. He states that his abdominal pain is significantly improved compared to yesterday. He states that his appetite is getting better and has been able to eat icecream, jello, and juice. He has not had a BM since admission. Patient states he slept very well throught the night. Denies fever, chills, nausea, vomiting, dizziness, chest pain, sob, and swelling. Objective - Vital Signs/Intake and Output Vital Signs (last 24 hours): Temp Pulse Resp BP Pulse Ox 97.7 F 70 20 93/58 L 98 01/21/17 01:09 01/21/17 02:47 01/21/17 01:09 01/21/17 01:09 01/21/17 01:09 Intake and Output: 01/21/17 01/21/17 06:59 18:59 Intake Total 800 Output Total 1000 Balance -1000 800 - Medications Medications: Current Medications Cyproheptadine HCl (Periactin) 4 mg PO HS [facility] Last Admin: 01/20/17 22:42 Dose: 4 mg Folic Acid (Folic Acid) 1 mg PO DAILY [facility] Last Admin: 01/21/17 09:47 Dose: 1 mg Gabapentin (Neurontin) 300 mg PO BID [facility] Last Admin: 01/21/17 09:48 Dose: 300 mg Sodium Chloride (Sodium Chloride 0.9%) 1,000 mls @ 100 mls/hr IV .Q10H [facility] Last Admin: 01/21/17 07:01 Dose: 100 mls/hr Lorazepam (Ativan) 1 mg IVP Q8H [facility] PRN Reason: Taper Stop: 01/24/17 09:16 Last Admin: 01/21/17 09:52 Dose: 1 mg Lorazepam (Ativan) 1 mg IVP Q2H PRN PRN Reason: Seizure activity Last Admin: 01/20/17 13:56 Dose: 1 mg Multivitamins (Hexavitamin) 1 tab PO DAILY [facility] Last Admin: 01/21/17 09:48 Dose: 1 tab Ondansetron HCl (Zofran Inj) 4 mg IVP Q4H PRN PRN Reason: Nausea/Vomiting Last Admin: 01/20/17 13:54 Dose: 4 mg Pantoprazole Sodium (Protonix Inj) 40 mg IVP DAILY [facility] Last Admin: 01/21/17 09:48 Dose: 40 mg Thiamine HCl (Vitamin B1 Tab) 100 mg PO DAILY [facility] Last Admin: 01/21/17 09:48 Dose: 100 mg - Labs Labs: 01/21/17 07:37 01/21/17 07:37 PT 13.7 SECONDS (9.7-12.2) H 01/20/17 07:11 INR 1.2 01/20/17 07:11
--- NOTE | 2017-01-21 14:50 | CP.PCM.DIS ---
<Salome Ovalles - Last Filed: 01/22/17 22:24> Provider - Provider Date of Admission: 01/18/17 18:21 Attending physician: Buzz Lane DO Primary care physician: none Consults: Dr. Robertson - SHILA Time Spent in preparation of Discharge (in minutes): 35 Hospital Course - Lab Results Lab Results: Most Recent Lab Values WBC 5.3 K/uL (4.8-10.8) 01/21/17 07:37 RBC 4.03 Mil/uL (4.40-5.90) L 01/21/17 07:37 Hgb 12.5 g/dL (12.0-18.0) 01/21/17 07:37 Hct 37.7 % (35.0-51.0) 01/21/17 07:37 MCV 93.6 fL (80.0-94.0) 01/21/17 07:37 MCH 30.9 pg (27.0-31.0) 01/21/17 07:37 MCHC 33.1 g/dL (33.0-37.0) 01/21/17 07:37 RDW 13.8 % (11.5-14.5) 01/21/17 07:37 Plt Count 215 K/uL (130-400) 01/21/17 07:37 MPV 9.1 fL (7.2-11.7) 01/21/17 07:37 Neut % (Auto) 42.8 % (50.0-75.0) L 01/21/17 07:37 Lymph % (Auto) 40.1 % (20.0-40.0) H 01/21/17 07:37 Boone % (Auto) 13.6 % (0.0-10.0) H 01/21/17 07:37 Eos % (Auto) 2.0 % (0.0-4.0) 01/21/17 07:37 Baso % (Auto) 1.5 % (0.0-2.0) 01/21/17 07:37 Neut # 2.3 K/uL (1.8-7.0) 01/21/17 07:37 Lymph # 2.1 K/uL (1.0-4.3) 01/21/17 07:37 Boone # 0.7 K/uL (0.0-0.8) 01/21/17 07:37 Eos # 0.1 K/uL (0.0-0.7) 01/21/17 07:37 Baso # 0.1 K/uL (0.0-0.2) 01/21/17 07:37 Retic Count 1.3 % (0.5-1.5) 01/19/17 19:34 PT 13.7 SECONDS (9.7-12.2) H 01/20/17 07:11 INR 1.2 01/20/17 07:11 Sodium 135 mmol/L (132-148) 01/21/17 07:37 Potassium 4.1 mmol/L (3.6-5.2) 01/21/17 07:37 Chloride 98 mmol/L (98-107) 01/21/17 07:37 Carbon Dioxide 24 mmol/L (22-30) 01/21/17 07:37 Anion Gap 17 (10-20) 01/21/17 07:37 BUN 3 mg/dL (9-20) L 01/21/17 07:37 Creatinine 0.7 MG/DL (0.8-1.5) L 01/21/17 07:37 Est GFR ( Amer) > 60 01/21/17 07:37 Est GFR (Non-Af Amer) > 60 01/21/17 07:37 Random Glucose 79 mg/dL (75-110) 01/21/17 07:37 Calcium 8.1 mg/dl (8.6-10.4) L 01/21/17 07:37 Magnesium 2.1 mg/dL (1.6-2.3) 01/19/17 08:12 Iron 39 ug/dL (49-181) L 01/19/17 19:34 TIBC 239 ug/dL (250-450) L 01/19/17 19:34 % Saturation 16 (20-55) L 01/19/17 19:34 Ferritin 119.0 ng/mL 01/19/17 19:34 Total Bilirubin 0.7 mg/dL (0.2-1.3) 01/21/17 07:37 AST 26 U/L (17-59) 01/21/17 07:37 ALT 33 U/L (21-72) 01/21/17 07:37 Alkaline Phosphatase 43 U/L (38-126) 01/21/17 07:37 Ammonia < 9 umol/L (9-33) L 01/18/17 17:06 Total Protein 5.8 g/dL (6.3-8.3) L 01/21/17 07:37 Albumin 3.4 g/dL (3.5-5.0) L 01/21/17 07:37 Globulin 2.4 gm/dL (2.2-3.9) 01/21/17 07:37 Albumin/Globulin Ratio 1.5 (1.0-2.1) 01/21/17 07:37 Lipase 97 U/L (23-300) 01/18/17 17:06 Vitamin B12 > 1000 pg/mL (239-931) H 01/19/17 19:34 Folate > 20.0 ng/mL 01/19/17 19:34 Urine Color Yellow (YELLOW) 01/18/17 15:26 Urine Clarity Clear (Clear) 01/18/17 15:26 Urine pH 6.0 (5.0-8.0) 01/18/17 15:26 Ur Specific Maxwell 1.011 (1.003-1.030) 01/18/17 15:26 Urine Protein Negative mg/dL (NEGATIVE) 01/18/17 15:26 Urine Glucose (UA) Normal mg/dL (Normal) 01/18/17 15:26 Urine Ketones Trace mg/dL (NEGATIVE) 01/18/17 15:26 Urine Blood Negative (NEGATIVE) 01/18/17 15:26 Urine Nitrate Negative (NEGATIVE) 01/18/17 15:26 Urine Bilirubin Negative (NEGATIVE) 01/18/17 15:26 Urine Urobilinogen Normal mg/dL (0.2-1.0) 01/18/17 15:26 Ur Leukocyte Esterase Neg Subhash/uL (Negative) 01/18/17 15:26 Urine WBC (Auto) < 1 /hpf (0-5) 01/18/17 15:26 Urine RBC (Auto) < 1 /hpf (0-3) 01/18/17 15:26 Stool Occult Blood Negative (NEGATIVE) 01/19/17 18:02 Urine Opiates Screen Negative (NEGATIVE) 01/18/17 17:27 Urine Methadone Screen Negative (NEGATIVE) 01/18/17 17:27 Ur Barbiturates Screen Negative (NEGATIVE) 01/18/17 17:27 Ur Phencyclidine Scrn Negative (NEGATIVE) 01/18/17 17:27 Ur Amphetamines Screen Negative (NEGATIVE) 01/18/17 17:27 U Benzodiazepines Scrn Negative (NEGATIVE) 01/18/17 17:27 U Oth Cocaine Metabols Negative (NEGATIVE) 01/18/17 17:27 U Cannabinoids Screen Negative (NEGATIVE) 01/18/17 17:27 Alcohol, Quantitative < 10 mg/dl (0-10) 01/18/17 17:06 - Hospital Course Hospital Course: On admission: This is a 41 yo with PMH significant for Etoh abuse presented to the ED with chief complaint of abdominal pain and desire for detox from Etoh. Pt states that he used to abuse Etoh but stopped around 10 years ago. However, he states that starting about 1 month ago, he began to drink again. He says that he was drinking around 10 large beers per day. He states that this went on for at least 2 weeks at which time he was not consuming food as well. He reports significant weight loss, around 20-30 pounds. According to the pt, he stopped drinking again about 1 week ago and that is when he started having abdominal pain. The pain is worse with eating and he feels like he is bloated and there is burning as well. He has not been vomiting and denies any diarrhea as well. Denies fevers, chills, chest pain, sob or nausea. He admits to shaking , and diaphoresis. He states that he will soke his sheets at night. During Hospital Stay: Patient was admitted and had mild tremors during to alcohol withdrawal. His alcohol level was undetected and UDs was negative. He was given Ativan taper to help with symptoms of withdrawal. He was also given multivitamin, folic acid, and thiamine daily. CT abdomen and pelvis 01/18 showed Mild thickening versus underdistention of the left hemicolon. Clinical correlation. Correlation with contrast-enhanced CT may be helpful if clinically indicated. Prior appendectomy. Patient was given liquid diet due to his abdominal pain. He then had an EGD done by Dr. Robertson which showed gastritis and was negative for H.Pylori. Lipase with within normal limits. Stool occult was negative. Patient's weight loss likely attributed to the patient drinking alcohol and not eating proper diet. Patient was then able to tolerate a regular diet before discharge. His tremors resolved and he had not other signs of withdrawal. Patient stable for discharge home. Patient to follow up with his primary care doctor within one week of discharge. If patient does not have a primary care he can follow up in the [facility]. Patient is to call and make an appointment. Patient is to follow up with GI Dr. Robertson for post hospital care within one week of discharge. Patient is to go to stop drinking alcohol and go to [facility] at [facility]. Patient is to take multivitamin, folic acid, thiamine and periactin daily. He is also to take pepcid over the counter daily for his gastritis. Patient is to return if symptoms resume. All instructions explained to the patient and he agrees. Discharge Exam - Head Exam Head Exam: ATRAUMATIC, NORMOCEPHALIC - Eye Exam Eye Exam: EOMI, Normal appearance, PERRL Pupil Exam: NORMAL ACCOMODATION - Respiratory Exam Respiratory Exam: Clear to PA & Lateral, NORMAL BREATHING PATTERN. absent: Accessory Muscle Use, Chest Wall Tenderness, Rales, Rhonchi, Wheezes, Respiratory Distress - Cardiovascular Exam Cardiovascular Exam: REGULAR RHYTHM, +S1, +S2 - GI/Abdominal Exam GI & Abdominal Exam: Normal Bowel Sounds, Soft. absent: Distended, Firm, Guarding, Tenderness - Extremities Exam Extremities exam: normal inspection - Back Exam Back exam: NORMAL INSPECTION. absent: CVA tenderness (L), CVA tenderness (R), paraspinal tenderness - Neurological Exam Neurological exam: Alert, CN II-XII Intact, Normal Gait, Oriented x3 - Psychiatric Exam Psychiatric exam: Normal Affect, Normal Mood - Skin Skin Exam: Dry, Intact, Normal Color, Warm Discharge Plan - Discharge Medications Prescriptions: Folic Acid 1 mg PO DAILY #30 tab Multivitamins [Hexavitamin] 1 tab PO DAILY #30 tab Cyproheptadine [Periactin] 4 mg PO HS #30 tab Thiamine [Vitamin B1 Tab] 100 mg PO DAILY #30 tab - Follow Up Plan Condition: GUARDED Disposition: HOME/ ROUTINE Instructions: Acute Abdominal Pain (DC), Acute Abdominal Pain (GEN), Alcohol Withdrawal (DC) Additional Instructions: Patient stable for discharge home. Patient to follow up with his primary care doctor within one week of discharge. If patient does not have a primary care he can follow up in the [facility]. Patient is to call and make an appointment. Patient is to follow up with GI Dr. Robertson for post hospital care within one week of discharge. Patient is to go to stop drinking alcohol and go to [facility] at [facility]. Patient is to take multivitamin, folic acid, thiamine and periactin daily. He is also to take pepcid over the counter daily for his gastritis. Patient is to return if symptoms resume. All instructions explained to the patient and he agrees. Referrals: Ez Robertson MD [Staff Provider] - [facility] at [facility] [Outside] <Buzz Lane - Last Filed: 01/23/17 07:22> Provider - Provider Date of Admission: 01/18/17 18:21 Attending physician: Buzz Lane DO Hospital Course - Lab Results Lab Results: Most Recent Lab Values WBC 5.3 K/uL (4.8-10.8) 01/21/17 07:37 RBC 4.03 Mil/uL (4.40-5.90) L 01/21/17 07:37 Hgb 12.5 g/dL (12.0-18.0) 01/21/17 07:37 Hct 37.7 % (35.0-51.0) 01/21/17 07:37 MCV 93.6 fL (80.0-94.0) 01/21/17 07:37 MCH 30.9 pg (27.0-31.0) 01/21/17 07:37 MCHC 33.1 g/dL (33.0-37.0) 01/21/17 07:37 RDW 13.8 % (11.5-14.5) 01/21/17 07:37 Plt Count 215 K/uL (130-400) 01/21/17 07:37 MPV 9.1 fL (7.2-11.7) 01/21/17 07:37 Neut % (Auto) 42.8 % (50.0-75.0) L 01/21/17 07:37 Lymph % (Auto) 40.1 % (20.0-40.0) H 01/21/17 07:37 Boone % (Auto) 13.6 % (0.0-10.0) H 01/21/17 07:37 Eos % (Auto) 2.0 % (0.0-4.0) 01/21/17 07:37 Baso % (Auto) 1.5 % (0.0-2.0) 01/21/17 07:37 Neut # 2.3 K/uL (1.8-7.0) 01/21/17 07:37 Lymph # 2.1 K/uL (1.0-4.3) 01/21/17 07:37 Boone # 0.7 K/uL (0.0-0.8) 01/21/17 07:37 Eos # 0.1 K/uL (0.0-0.7) 01/21/17 07:37 Baso # 0.1 K/uL (0.0-0.2) 01/21/17 07:37 Retic Count 1.3 % (0.5-1.5) 01/19/17 19:34 PT 13.7 SECONDS (9.7-12.2) H 01/20/17 07:11 INR 1.2 01/20/17 07:11 Sodium 135 mmol/L (132-148) 01/21/17 07:37 Potassium 4.1 mmol/L (3.6-5.2) 01/21/17 07:37 Chloride 98 mmol/L (98-107) 01/21/17 07:37 Carbon Dioxide 24 mmol/L (22-30) 01/21/17 07:37 Anion Gap 17 (10-20) 01/21/17 07:37 BUN 3 mg/dL (9-20) L 01/21/17 07:37 Creatinine 0.7 MG/DL (0.8-1.5) L 01/21/17 07:37 Est GFR ( Amer) > 60 01/21/17 07:37 Est GFR (Non-Af Amer) > 60 01/21/17 07:37 Random Glucose 79 mg/dL (75-110) 01/21/17 07:37 Calcium 8.1 mg/dl (8.6-10.4) L 01/21/17 07:37 Magnesium 2.1 mg/dL (1.6-2.3) 01/19/17 08:12 Iron 39 ug/dL (49-181) L 01/19/17 19:34 TIBC 239 ug/dL (250-450) L 01/19/17 19:34 % Saturation 16 (20-55) L 01/19/17 19:34 Ferritin 119.0 ng/mL 01/19/17 19:34 Total Bilirubin 0.7 mg/dL (0.2-1.3) 01/21/17 07:37 AST 26 U/L (17-59) 01/21/17 07:37 ALT 33 U/L (21-72) 01/21/17 07:37 Alkaline Phosphatase 43 U/L (38-126) 01/21/17 07:37 Ammonia < 9 umol/L (9-33) L 01/18/17 17:06 Total Protein 5.8 g/dL (6.3-8.3) L 01/21/17 07:37 Albumin 3.4 g/dL (3.5-5.0) L 01/21/17 07:37 Globulin 2.4 gm/dL (2.2-3.9) 01/21/17 07:37 Albumin/Globulin Ratio 1.5 (1.0-2.1) 01/21/17 07:37 Lipase 97 U/L (23-300) 01/18/17 17:06 Vitamin B12 > 1000 pg/mL (239-931) H 01/19/17 19:34 Folate > 20.0 ng/mL 01/19/17 19:34 Urine Color Yellow (YELLOW) 01/18/17 15:26 Urine Clarity Clear (Clear) 01/18/17 15:26 Urine pH 6.0 (5.0-8.0) 01/18/17 15:26 Ur Specific Maxwell 1.011 (1.003-1.030) 01/18/17 15:26 Urine Protein Negative mg/dL (NEGATIVE) 01/18/17 15:26 Urine Glucose (UA) Normal mg/dL (Normal) 01/18/17 15:26 Urine Ketones Trace mg/dL (NEGATIVE) 01/18/17 15:26 Urine Blood Negative (NEGATIVE) 01/18/17 15:26 Urine Nitrate Negative (NEGATIVE) 01/18/17 15:26 Urine Bilirubin Negative (NEGATIVE) 01/18/17 15:26 Urine Urobilinogen Normal mg/dL (0.2-1.0) 01/18/17 15:26 Ur Leukocyte Esterase Neg Subhash/uL (Negative) 01/18/17 15:26 Urine WBC (Auto) < 1 /hpf (0-5) 01/18/17 15:26 Urine RBC (Auto) < 1 /hpf (0-3) 01/18/17 15:26 Stool Occult Blood Negative (NEGATIVE) 01/19/17 18:02 Urine Opiates Screen Negative (NEGATIVE) 01/18/17 17:27 Urine Methadone Screen Negative (NEGATIVE) 01/18/17 17:27 Ur Barbiturates Screen Negative (NEGATIVE) 01/18/17 17:27 Ur Phencyclidine Scrn Negative (NEGATIVE) 01/18/17 17:27 Ur Amphetamines Screen Negative (NEGATIVE) 01/18/17 17:27 U Benzodiazepines Scrn Negative (NEGATIVE) 01/18/17 17:27 U Oth Cocaine Metabols Negative (NEGATIVE) 01/18/17 17:27 U Cannabinoids Screen Negative (NEGATIVE) 01/18/17 17:27 Alcohol, Quantitative < 10 mg/dl (0-10) 01/18/17 17:06 Attending/Attestation - Attestation I have personally seen and examined this patient.: Yes I have fully participated in the care of the patient.: Yes I have reviewed all pertinent clinical information, including history, physical exam and plan: Yes
[2017-01-21 18:31] VITALS: BP 105/74; PULSE 71; RESP 20; TEMP 97.5; O2SAT 100
== END 2017-01-21 19:25 | disposition home or self-care (01) | DRG 392 ==
LOC: C.ER 13:41 → C.9E 18:21 → C.5T 19:17
PROVIDERS: ADMIT Hospitalist; ATTEND Hospitalist
PROC: HZ2ZZZZ Detoxification Services for Substance Abuse Treatment (ICD-10-PCS; principal; 2017-01-19)
PROC: HZ36ZZZ Individual Counseling for Substance Abuse Treatment, Psychoeducation (ICD-10-PCS; 2017-01-19)
PROC: HZ59ZZZ Individual Psychotherapy for Substance Abuse Treatment, Supportive (ICD-10-PCS; 2017-01-19)
PROC: 0DB88ZX Excision of Small Intestine, Via Natural or Artificial Opening Endoscopic, Diagnostic (ICD-10-PCS; 2017-01-20)
PROC: 0DB88ZX Excision of Small Intestine, Via Natural or Artificial Opening Endoscopic, Diagnostic (ICD-10-PCS; 2017-01-20)
DX: K29.20 Alcoholic gastritis without bleeding (principal); F10.230 Alcohol dependence with withdrawal, uncomplicated; K20.8 Other esophagitis; G47.00 Insomnia, unspecified; Y90.0 Blood alcohol level of less than 20 mg/100 ml; R63.4 Abnormal weight loss; K29.50 Unspecified chronic gastritis without bleeding

== ENCOUNTER 2017-01-23 00:03 | Emergency (ER) | payer OTHER ==
[2017-01-23 00:11] VITALS: TEMP 98.2
[2017-01-23] MEDS ORDERED: Aluminum Hydroxide/Magnesium Hydroxide Susp (30 mL) PO STA (00:35)
[2017-01-23] MEDS ORDERED: Sodium Chloride 0.9% 1,000 ML IV ONE (00:35)
[2017-01-23] MEDS ORDERED: Lidocaine 2% Viscous 100 ml PO STA (00:35)
[2017-01-23] MEDS ORDERED: Belladonna-Phenobarbital PO STA (00:35)
[2017-01-23] MEDS ORDERED: Belladonna-Phenobarbital ONE (01:00)
[2017-01-23] MEDS ORDERED: Aluminum Hydroxide/Magnesium Hydroxide Susp (30 mL) ONE (01:00)
[2017-01-23 01:22] LABS: BASO # 0.1 K/uL (0.0-0.2); BASO % 2.1 % (0.0-2.0); EOS # 0.1 K/uL (0.0-0.7); EOS % 1.1 % (0.0-4.0); HEMATOCRIT 39.4 % (35.0-51.0); LYMPH # 1.7 K/uL (1.0-4.3); MEAN PLATELET VOLUME 8.7 fL (7.2-11.7); MONO # 0.6 K/uL (0.0-0.8); MONO % 10.1 % (0.0-10.0); RED CELL DISTRIBUTION WIDTH 13.7 % (11.5-14.5)
[2017-01-23 01:39] LABS: CHLORIDE 95 mmol/L (98-107); POTASSIUM 4.1 mmol/L (3.6-5.2); SODIUM 136 mmol/L (132-148)
[2017-01-23 01:41] LABS: ALB/GLOB RATIO 1.5 (1.0-2.1); ALKALINE PHOSPHATASE 62 U/L (38-126); AST/SGOT 24 U/L (17-59); BILIRUBIN,TOTAL 0.3 mg/dL (0.2-1.3); BLOOD UREA NITROGEN 7 mg/dL (9-20); CARBON DIOXIDE 25 mmol/L (22-30); GFR AFRICAN-AMERICAN > 60; TOTAL PROTEIN 7.7 g/dL (6.3-8.3)
[2017-01-23 01:42] LABS: ALCOHOL SERUM < 10 mg/dl (0-10); ALT/SGPT 29 U/L (21-72); CALCIUM 9.2 mg/dl (8.6-10.4); GLUCOSE,RANDOM 95 mg/dL (75-110)
--- NOTE | 2017-01-23 04:20 | C.PDOC ---
History Of Present Illness 41 year old male presents to the ED with complaints of epigastric pain for two weeks with nausea and vomiting. Patient was discharged four days ago from hospital for the same complaint. He is able to tolerate PO and denies fever and any other complaints at this time. Chief Complaint (Nursing): Abdominal Pain History Per: Patient History/Exam Limitations: no limitations Onset/Duration Of Symptoms: Persistent Current Symptoms Are (Timing): Still Present Location Of Pain/Discomfort: Epigastric Quality Of Discomfort: "Pain" Associated Symptoms: Nausea, Vomiting. denies: Fever, Chills, Diarrhea Past Medical History Reviewed: Historical Data, Nursing Documentation, Vital Signs Vital Signs: Last Vital Signs Temp 98.2 F 01/23/17 00:08 Pulse 85 01/23/17 04:47 Resp 16 01/23/17 04:47 BP 118/72 01/23/17 04:47 Pulse Ox 98 01/23/17 04:47 - Medical History PMH: HTN Surgical History: Appendectomy Family History: States: Unknown Family Hx - Social History Hx Alcohol Use: Yes Hx Substance Use: No - Immunization History Hx Tetanus Toxoid Vaccination: No Hx Influenza Vaccination: No Hx Pneumococcal Vaccination: No Review Of Systems Constitutional: Negative for: Fever, Chills Cardiovascular: Negative for: Chest Pain Respiratory: Negative for: Shortness of Breath Gastrointestinal: Positive for: Nausea, Vomiting, Abdominal Pain (epigastric). Negative for: Diarrhea Genitourinary: Negative for: Dysuria, Hematuria Physical Exam - Physical Exam Appears: Non-toxic, No Acute Distress Skin: Warm, Dry Neck: Normal ROM, Supple Respiratory: No Accessory Muscle Use, No Rales, No Rhonchi, No Stridor, No Wheezing Gastrointestinal/Abdominal: Soft, Tenderness (mild diffuse tenderness ), No Distention, No Guarding, No Rebound Extremity: Normal ROM, No Tenderness Neurological/Psych: Oriented x3 ED Course And Treatment - Laboratory Results Result Diagrams: 01/23/17 01:20 01/23/17 01:20 O2 Sat by Pulse Oximetry: 99 Medical Decision Making Medical Decision Making: Questionable out patient medicine compliance. Disposition - Disposition Referrals: [facility] [Outside] [facility] [Outside] Disposition: HOME/ ROUTINE Disposition Time: 04:30 Condition: GOOD Additional Instructions: Thank you for letting us take care of you today. Your provider was Dr. Duff. You were treated for gastritis. The emergency medical care you received today was directed at your acute symptoms. If you were prescribed any medication, please fill it and take as directed. It may take several days for your symptoms to resolve. Return to the Emergency Department if your symptoms worsen, do not improve, or if you have any other problems. Please contact your doctor or call one of the physicians/clinics you have been referred to that are listed on the Patient Visit Information form that is included in your discharge packet. Bring any paperwork you were given at discharge with you along with any medications you are taking to your follow up visit. Our treatment cannot replace ongoing medical care by a primary care provider (PCP) outside of the emergency department. Thank you for allowing the [facility] team to be part of your care today. You must take the medication everyday for it to work. Follow up in the clinic in 3-4 days to be re-evaluated. Prescriptions: Omeprazole Magnesium [Prilosec Otc] 20 mg PO BID #20 tablet. Ranitidine HCl [Zantac] 150 mg PO BID #20 tablet Instructions: Gastritis (ED) Forms: Gen Discharge Inst Serbian Print Language: ARABIC - Clinical Impression Clinical Impression: Gastritis - Scribe Statement The provider has reviewed the documentation as recorded by the Scribe Danyelle Gonzalez All medical record entries made by the Ceciliaibkarissa were at my direction and personally dictated by me. I have reviewed the chart and agree that the record accurately reflects my personal performance of the history, physical exam, medical decision making, and the department course for this patient. I have also personally directed, reviewed, and agree with the discharge instructions and disposition.
[2017-01-23 04:48] VITALS: BP 118/72; PULSE 85; RESP 16
[2017-01-23 06:15] VITALS: O2SAT 99
== END 2017-01-23 04:47 | disposition home or self-care (01) ==
LOC: C.ER 00:03
DX: K29.70 Gastritis, unspecified, without bleeding (principal)
CPT/HCPCS: 80053; 80320; 83690; 85025; 96361; 96374; 96375; 99283; J1885; J2405; J7040